=== PATIENT | male | born 1950 | race Caucasian/White ===

== ENCOUNTER 2022-06-18 11:58 | Outpatient (CLI) | payer MEDICARE, SELFPAY ==
[2022-06-18 15:31] LABS: Chloride* 104 mmol/L (96-114); Potassium* 4.3 mmol/L (3.6-5.1); Sodium* 139 mmol/L (135-149)
[2022-06-18 15:33] LABS: Cholesterol* 201 mg/dL (90-199)
[2022-06-18 15:34] LABS: Alanine Aminotransferase* 25 U/L (4-50); Blood Urea Nitrogen* 17 mg/dL (7-30); Carbon Dioxide* 26 mmol/L (20-32); Estimated Glomerular Filt Rate 80 ml/min; Glucose* 102 mg/dL (60-115)
[2022-06-18 15:35] LABS: Calcium* 9.8 mg/dL (8.4-10.6); HDL Cholesterol* 49 mg/dL (>=40); LDL Cholesterol Calculated 116 mg/dL (<100); Triglycerides* 181 mg/dL (40-149)
[2022-06-18 15:58] LABS: PSA Screen* 0.61 ng/mL (0.10-4.00)
== END 2022-06-18 11:59 | disposition home or self-care (01) ==
PROVIDERS: PCP Family Medicine; Visit Provider Family Medicine
DX: Z00.00 Encounter for general adult medical examination without abnormal findings (principal); E78.5 Hyperlipidemia, unspecified; N52.9 Male erectile dysfunction, unspecified; Z12.5 Encounter for screening for malignant neoplasm of prostate
CPT/HCPCS: 80048; 80061; 84153; 84460

== ENCOUNTER 2022-07-16 21:24 | Outpatient (CLI) | payer MEDICARE, BC, SELFPAY ==
--- NOTE | 2022-07-31 12:28 | W.PM.SLEEP ---
Sleep Study Details Details Interpreting Provider: Stephen Alberto MD Date of Sleep Study: 07/16/22 Sleep Study Details: STUDY TYPE:? Home ? BMI:? Not recorded ORDERING PROVIDER:? Janene INDICATION:? Concerns about sleep apnea ? SLEEP SUMMARY:? 514 monitored minutes RESPIRATORY SUMMARY:? AHI 32.9. The entire study was done in the supine position. Low oxygen saturation was 80% 7.8% of study oxygen was less than 90%, and 0.6% of study oxygen less than 85%. Snoring 31.3% PERIODIC LIMB MOVEMENTS OF SLEEP:? Not recorded CARDIAC:? 32-67, mean 49 IMPRESSION:? Bradycardia was noted during the study further cardiac evaluation may be indicated. Severe obstructive sleep apnea with an AHI of 32.9. Treatment options would include AutoSet CPAP at 4-17 versus an in-lab titration study. RECOMMENDATION: See above
== END 2022-07-16 21:25 | disposition home or self-care (01) ==
PROVIDERS: PCP Family Medicine; Visit Provider Family Medicine
DX: G47.33 Obstructive sleep apnea (adult) (pediatric) (principal)
CPT/HCPCS: 95806

== ENCOUNTER 2023-06-19 10:46 | Outpatient (CLI) | payer MEDICARE, BC, SELFPAY | END 2023-06-19 10:47 | disposition home or self-care (01) | PROVIDERS: PCP Family Medicine; Visit Provider Family Medicine | DX: Z00.00 Encounter for general adult medical examination without abnormal findings (principal); E78.5 Hyperlipidemia, unspecified; R35.0 Frequency of micturition; Z12.5 Encounter for screening for malignant neoplasm of prostate | CPT/HCPCS: 80048; 80061; 84153; 84460 ==

== ENCOUNTER 2025-01-11 12:15 | Outpatient (CLI) | payer MEDICARE, BC, SELFPAY | END 2025-01-11 12:16 | disposition home or self-care (01) | PROVIDERS: PCP Family Medicine; Visit Provider Family Medicine | DX: E78.5 Hyperlipidemia, unspecified (principal); R63.5 Abnormal weight gain; N52.9 Male erectile dysfunction, unspecified; Z12.5 Encounter for screening for malignant neoplasm of prostate | CPT/HCPCS: 80048; 80061; 84460; G0103 ==